=== PATIENT | male | born 1995 | race Caucasian/White ===

== ENCOUNTER 2017-04-27 11:46 | Emergency (ER) | payer OTHER ==
[~2017-04-27] VITALS: Ht 175.3 cm; Wt 64.4 kg
[2017-04-27 11:49] VITALS: TEMP 36.8; Ht 175.3 cm; Wt 64.4 kg
[2017-04-27] MEDS ORDERED: ONDANSETRON INJ 2 MG/ML 2 ML VIAL IV STA ×2 (12:17→14:15)
[2017-04-27] MEDS ORDERED: SODIUM CHLORIDE 0.9% 1000ML 1,000 ML IV STA (12:17)
[2017-04-27 12:30] LABS: BASO % 0.3 %; BASO ABS # 0.02 K/uL (0-0.2); COMPLETE YES; EOS % 0.8 %; HEMATOCRIT 45.3 % (42-52); IG% 0.3 %; LYMPH % 22.4 %; LYMPH ABS # 1.78 K/uL (1.2-3.4); MEAN CELL VOLUME 84.7 fL (80-100); MEAN CORPUSCULAR HEMOGLOBIN 30.8 pg (25-34); MEAN CORPUSCULAR HGB CONC 36.4 g/dl (32-36); MEAN PLATELET VOLUME 10.9 fL (7.4-10.4); MONO % 8.4 %; NEUT % 67.8 %; PLATELET COUNT 209 K/uL (130-400); RED BLOOD COUNT 5.35 M/uL (4.7-6.1); WHITE BLOOD COUNT 7.95 K/uL (4.8-10.8)
[2017-04-27] MEDS ORDERED: OPTIRAY 320 IV PRN (12:30)
--- NOTE | 2017-04-27 12:46 | EMERGENCY ROOM VISIT NOTE ---
History First contact with patient: 12:09 Chief Complaint: ABDOMINAL PAIN Stated Complaint: N,D, STOMACH PAIN Nursing Triage Summary: Patient c/o sharp pain in umbilical area since last night with nausea and diarrhea. History of Present Illness The patient is a 21 year old male who presents to the Emergency Room with complaints of abdominal pain. The patient states his pain started last night. He states initially he had some diarrhea. Diarrhea has resolved. He states that he woke in the middle of the night again with pain in the umbilical area. He rates his discomfort as 6/10. He states the nausea and pain persist. He now complains of pain in the right lower abdomen. He states the pain and nausea are worse with walking. He was seen at [facility] and referred to the emergency department for further evaluation and management. He denies any fevers or vomiting. He denies any recent illness, earache, sore throat or cough. He denies any urinary symptoms. He denies any known contacts. He has never had surgery on his abdomen. Review of Systems A 10 system review of systems was completed with positives and pertinent negatives listed in the HPI. Past Medical/Surgical History Patient denies Social History Smoking Status: Never Smoker Drug Use: none Marital Status: single Housing Status: lives with roommate Occupation Status: [employer] student Current/Historical Medications Scheduled Ondasetron Odt (Zofran Odt), 4 MG SL Q6H Physical Exam Vital Signs Date Time Temp Pulse Resp B/P (MAP) Pulse Ox O2 Delivery O2 Flow Rate FiO2 04/27/17 15:30 65 18 116/68 98 Room Air 04/27/17 13:48 68 16 122/71 99 Room Air 04/27/17 11:49 36.8 54 16 131/81 99 Room Air Physical Exam VITALS: Vitals are noted on the nurse's note and reviewed by myself. Vital signs stable. The patient is afebrile. GENERAL: This is a 21-year-old male, in no acute distress, nondiaphoretic, well- developed well-nourished. SKIN: The skin was without rashes, erythema, edema, or bruising. There is no tenting of the skin. Capillary reflex less than 2 seconds. HEAD: Normocephalic atraumatic. EARS: The external ears are normal in appearance. EYES: Pupils equal round and reactive to light and accommodation. Conjunctivae without injection, sclerae without icterus. Extraocular movements intact. NOSE: Patent, turbinates without inflammation or discharge. MOUTH: Mucous membranes moist. Tonsils are not enlarged. Pharynx without erythema or exudate. Uvula midline. Airway patent. Tongue does not deviate. NECK: Supple without nuchal rigidity. No JVD. HEART: Regular rate and rhythm without murmurs gallops or rubs. LUNGS: Clear to auscultation bilaterally without wheezes, rales or rhonchi. No retractions or accessory muscle use. ABDOMEN: Positive bowel sounds x 4. Soft, mild right upper abdominal tenderness, moderate right lower quadrant tenderness, without masses or organomegaly. MUSCULOSKELETAL: No muscle atrophy, erythema, or edema noted. Full range of motion in all extremities. No tenderness to palpation. Normal gait. Strength 5/5 throughout. NEURO: Patient was alert and oriented to person place and time. No focal neurological deficits. Medical Decision & Procedures ER Provider Diagnostic Interpretation: CT OF THE ABDOMEN AND PELVIS WITH CONTRAST CLINICAL HISTORY: Right lower quadrant abdominal pain. COMPARISON STUDY: None. TECHNIQUE: Following IV administration of 94 mL of Optiray-320, axial images of the abdomen and pelvis were obtained from the lung bases to the proximal femurs. Images were reviewed in the axial, sagittal, and coronal planes. IV contrast was administered without complication. A dose lowering technique was utilized adhering to the principles of ALARA. Oral contrast was administered. CT DOSE: 281.01 mGy.cm FINDINGS: The liver, spleen, adrenal glands, kidneys and pancreas are normal. There is no evidence for a bowel obstruction. There is no biliary or pancreatic ductal dilatation. Caliber and wall thickness of small and large bowel are normal. The appendix is not identified. There is no right lower quadrant inflammation. Trace fluid within the pelvis is noted. Skeletal structures are unremarkable. IMPRESSION: 1. Nonvisualization of the appendix but no right lower quadrant inflammation. No acute inflammatory process within the abdomen or pelvis. 2. Trace free fluid within the pelvis. Laboratory Results 04/27/17 12:00 Red Blood Count 5.35, Mean Corpuscular Volume 84.7, Mean Corpuscular Hemoglobin 30.8, Mean Corpuscular Hemoglobin Concent 36.4, Mean Platelet Volume 10.9, Neutrophils (%) (Auto) 67.8, Lymphocytes (%) (Auto) 22.4, Monocytes (%) (Auto) 8.4, Eosinophils (%) (Auto) 0.8, Basophils (%) (Auto) 0.3, Neutrophils # (Auto) 5.40, Lymphocytes # (Auto) 1.78, Monocytes # (Auto) 0.67, Eosinophils # (Auto) 0.06, Basophils # (Auto) 0.02 04/27/17 12:00 Test 04/27/17 12:00 White Blood Count 7.95 K/uL (4.8-10.8) Red Blood Count 5.35 M/uL (4.7-6.1) Hemoglobin 16.5 g/dL (14.0-18.0) Hematocrit 45.3 % (42-52) Mean Corpuscular Volume 84.7 fL (80-100) Mean Corpuscular Hemoglobin 30.8 pg (25-34) Mean Corpuscular Hemoglobin Concent 36.4 g/dl (32-36) Platelet Count 209 K/uL (130-400) Mean Platelet Volume 10.9 fL (7.4-10.4) Neutrophils (%) (Auto) 67.8 % Lymphocytes (%) (Auto) 22.4 % Monocytes (%) (Auto) 8.4 % Eosinophils (%) (Auto) 0.8 % Basophils (%) (Auto) 0.3 % Neutrophils # (Auto) 5.40 K/uL (1.4-6.5) Lymphocytes # (Auto) 1.78 K/uL (1.2-3.4) Monocytes # (Auto) 0.67 K/uL (0.11-0.59) Eosinophils # (Auto) 0.06 K/uL (0-0.5) Basophils # (Auto) 0.02 K/uL (0-0.2) RDW Standard Deviation 37.6 fL (36.4-46.3) RDW Coefficient of Variation 12.4 % (11.5-14.5) Immature Granulocyte % (Auto) 0.3 % Immature Granulocyte # (Auto) 0.02 K/uL (0.00-0.02) Urine Color YELLOW Urine Appearance CLEAR (CLEAR) Urine pH 7.5 (4.5-7.5) Urine Specific Manley 1.013 (1.000-1.030) Urine Protein NEG (NEG) Urine Glucose (UA) NEG (NEG) Urine Ketones NEG (NEG) Urine Occult Blood NEG (NEG) Urine Nitrite NEG (NEG) Urine Bilirubin NEG (NEG) Urine Urobilinogen NEG (NEG) Urine Leukocyte Esterase NEG (NEG) Anion Gap 6.0 mmol/L (3-11) Est Creatinine Clear Calc Drug Dose 122.0 ml/min Estimated GFR () 143.3 Estimated GFR (Non- 123.7 BUN/Creatinine Ratio 13.9 (10-20) Uric Acid 5.2 mg/dl (2.6-7.2) Calcium Level 10.4 mg/dl (8.5-10.1) Total Bilirubin 0.6 mg/dl (0.2-1) Aspartate Amino Transf (AST/SGOT) 17 U/L (15-37) Alanine Aminotransferase (ALT/SGPT) 33 U/L (12-78) Alkaline Phosphatase 102 U/L (45-117) Total Protein 8.3 gm/dl (6.4-8.2) Albumin 4.9 gm/dl (3.4-5.0) Globulin 3.4 gm/dl (2.5-4.0) Albumin/Globulin Ratio 1.4 (0.9-2) Lipase 144 U/L (73-393) Medications Administered Medications (Trade) Dose Ordered Sig/Logan Route Start Time Stop Time Status Last Admin Dose Admin Sodium Chloride 1,000 ml @ 999 mls/hr Q1H1M STAT IV 04/27/17 12:17 04/27/17 13:17 DC 04/27/17 12:17 999 MLS/HR Ondansetron HCl (Zofran Inj) 4 mg NOW STAT IV 04/27/17 12:17 04/27/17 12:19 DC 04/27/17 12:36 4 MG Ondansetron HCl (Zofran Inj) 4 mg NOW STAT IV 04/27/17 14:15 04/27/17 14:17 DC 04/27/17 14:29 4 MG Morphine Sulfate (MoRPHine SULFATE INJ) 4 mg NOW STAT IV 04/27/17 14:15 04/27/17 14:17 DC 04/27/17 14:29 4 MG ED Course The patient was seen and examined. Previous visits were reviewed. The patient does not have a fever or leukocytosis. He does not have any significant electrolyte abnormality. Lipase is not elevated. Urinalysis is negative. CT scan of the abdomen and pelvis was negative for acute abnormality. The appendix was not directly visualized but there was no evidence for inflammation or edema. The patient was hydrated with normal saline solution He was initially given 4 mg IV Zofran His nausea and pain returned and he was given 4 mg IV Zofran and 4 mg IV morphine The patient presented with abdominal pain, nausea and diarrhea. He did have right-sided abdominal tenderness including right lower quadrant tenderness. He stated the nausea and pain was worse with walking. The above evaluation was performed. There is no obvious acute appendicitis; however, the appendix was not directly visualized. The patient was advised to have a repeat examination tomorrow at [facility]. He should return to the emergency department sooner with any worsening symptoms. The case was discussed with Dr. Bedoya who agrees with the assessment and management plan Medical Decision DIFFERENTIAL DIAGNOSIS: Hepatitis, cholecystitis, cholangitis, biliary colic, pancreatitis, pneumonia, subdiaphragmatic abscess, appendicitis, inguinal hernia , nephrolithiasis, inflammatory bowel disease, mesenteric adenitis, peptic ulcer disease, GERD, gastritis, pancreatitis, myocardial infarction, pericarditis, ruptured aortic aneurysm, appendicitis, gastroenteritis, bowel obstruction, splenic infarct, diverticulitis, mesenteric ischemia, metabolic, peritonitis, among others. Medication Reconcilliation Current Medication List: was personally reviewed by al Blood Pressure Screening Patient's blood pressure: Normal blood pressure Blood pressure disposition: Did not require urgent referral Impression Primary Impression: Right lower quadrant abdominal pain Departure Information Dispostion Home / Self-Care Condition GOOD Prescriptions Ondasetron Odt (ZOFRAN ODT) 4 Mg Tab 4 MG SL Q6H for Nausea, #10 TAB Prov: Nona Lynn PA-C 04/27/17 Referrals No Doctor, Assigned (PCP) Forms HOME CARE DOCUMENTATION FORM, IMPORTANT VISIT INFORMATION, School Instructions Return To School: 2 days Patient Instructions [facility] Additional Instructions Recheck with [facility] tomorrow for repeat examination Return with worsening symptoms, fevers
[2017-04-27 12:52] LABS: BUN/CREATININE RATIO 13.9 (10-20); CALCIUM 10.4 mg/dl (8.5-10.1); CREATININE 0.88 mg/dl (0.60-1.40); POTASSIUM 4.2 mmol/L (3.5-5.1); URIC ACID 5.2 mg/dl (2.6-7.2)
[2017-04-27 12:55] LABS: ALB/GLOB RATIO 1.4 (0.9-2)
[2017-04-27 13:37] LABS: URINE APPEARANCE CLEAR (CLEAR); URINE BILIRUBIN NEG (NEG); URINE COLOR YELLOW; URINE NITRITE NEG (NEG); URINE PH 7.5 (4.5-7.5); URINE SPECIFIC GRAVITY 1.013 (1.000-1.030); UROBILINOGEN NEG (NEG); ZZUR CULT IF INDIC CLEAN CATCH NO
[2017-04-27 13:39] LABS: MANUAL MICROSCOPIC REQUIRED? NO; REVIEW REQ? NO
[2017-04-27] MEDS ORDERED: MoRPHine SULFATE 4 MG/ML 1 ML CARP\\VIAL IV STA (14:15)
--- NOTE | 2017-04-27 15:01 | DIAGNOSTIC IMAGING REPORT ---
CT OF THE ABDOMEN AND PELVIS WITH CONTRAST CLINICAL HISTORY: Right lower quadrant abdominal pain. COMPARISON STUDY: None. TECHNIQUE: Following IV administration of 94 mL of Optiray-320, axial images of the abdomen and pelvis were obtained from the lung bases to the proximal femurs. Images were reviewed in the axial, sagittal, and coronal planes. IV contrast was administered without complication. A dose lowering technique was utilized adhering to the principles of ALARA. Oral contrast was administered. CT DOSE: 281.01 mGy.cm FINDINGS: The liver, spleen, adrenal glands, kidneys and pancreas are normal. There is no evidence for a bowel obstruction. There is no biliary or pancreatic ductal dilatation. Caliber and wall thickness of small and large bowel are normal. The appendix is not identified. There is no right lower quadrant inflammation. Trace fluid within the pelvis is noted. Skeletal structures are unremarkable. IMPRESSION: 1. Nonvisualization of the appendix but no right lower quadrant inflammation. No acute inflammatory process within the abdomen or pelvis. 2. Trace free fluid within the pelvis. Electronically signed by: Jewel Rodgers M.D. 04/27/2017 2:59 PM Dictated Date/Time: 04/27/2017 2:48 PM
[2017-04-27 15:30] VITALS: BP 116/68; PULSE 65; O2SAT 98
[2017-04-27] MEDS ORDERED: ONDA4TAB10 SL (15:42)
== END 2017-04-27 15:40 | disposition home or self-care (01) ==
LOC: C.EDB 11:48 → C.EDA 15:40
DX: R10.31 Right lower quadrant pain (principal)